=== PATIENT | female | born 1945 | race Caucasian/White ===

== ENCOUNTER 2021-01-29 08:00 | Outpatient (CLI) | payer BC | END 2021-01-29 08:01 | disposition home or self-care (01) | LOC: LAB 08:00 | PROVIDERS: ATTEND Family Medicine | DX: U07.1 COVID-19 (principal) ==

== ENCOUNTER 2021-01-29 19:15 | Outpatient (CLI) | payer BC ==
--- NOTE | 2021-01-29 22:16 | XRAY Report ---
PROCEDURE: Chest 2 View X-Ray INDICATIONS: COUGH TECHNIQUE: 2 view(s) of the chest. COMPARISON: None. FINDINGS: Surgical changes and devices: None. Lungs and pleura: No pleural effusions or pneumothorax. Lungs are clear. Mediastinum: Mediastinal contours are normal. Heart size is normal. Bones and chest wall: No suspicious bony abnormalities. Soft tissues appear unremarkable. IMPRESSION: No acute cardiopulmonary abnormality Reviewed by: Vicente Tarango on 01/29/2021 10:14 PM PDT Approved by: Vicente Tarango on 01/29/2021 10:14 PM PDT Station ID: [id number]
== END 2021-01-29 23:59 ==
LOC: DI.N 19:15
PROVIDERS: ATTEND Family Medicine
DX: R05.9 Cough, unspecified (principal); U07.1 COVID-19

== ENCOUNTER 2021-11-05 09:00 | Outpatient (CLI) | payer BC ==
[2021-11-05 09:15] LABS: BASOPHILS # (AUTO) 0.1 10^3/uL (0.0-0.1); BASOPHILS % (AUTO) 1.1 %; EOSINOPHILS # (AUTO) 0.2 10^3/uL (0.0-0.7); EOSINOPHILS % (AUTO) 3.6 %; HCT - HEMATOCRIT 43.2 % (37.0-47.0); HGB - HEMOGLOBIN 14.5 g/dL (12.0-16.0); LYMPHOCYTES # (AUTO) 3.2 10^3/uL (1.5-3.5); LYMPHOCYTES % (AUTO) 47.8 %; MEAN CORPUSCULAR HEMOGLOBIN 30.8 pg (27.0-31.0); MEAN CORPUSCULAR HGB CONC 33.6 g/dL (32.0-36.0); MEAN CORPUSCULAR VOLUME 91.7 fL (81.0-99.0); MEAN PLATELET VOLUME 10.1 fL (7.9-10.8); MONOCYTES # (AUTO) 0.7 10^3/uL (0.0-1.0); MONOCYTES % (AUTO) 10.5 %; NEUTROPHILS # (AUTO) 2.4 10^3/uL (1.5-6.6); NEUTROPHILS % (AUTO) 36.5 %; PLT - PLATELET COUNT 193 10^3/uL (130-450); RED BLOOD COUNT 4.71 10^6/uL (4.20-5.40); WHITE BLOOD COUNT 6.6 x10^3/uL (4.8-10.8)
[2021-11-05 09:41] LABS: ALBUMIN 4.3 g/dL (3.2-5.5); ALBUMIN/GLOBULIN RATIO 1.7 (1.0-2.2); ALKALINE PHOSPHATASE 40 IU/L (42-121); ALT ALANINE AMINOTRANSFERASE 21 IU/L (10-60); AST ASPARTATE AMINOTRANSFERASE 24 IU/L (10-42); BILIRUBIN,TOTAL 1.2 mg/dL (0.2-1.0); BUN - BLOOD UREA NITROGEN 19 mg/dL (6-20); CALCIUM 9.5 mg/dL (8.5-10.3); CARBON DIOXIDE - CO2 33 mmol/L (21-32); CHLORIDE 97 mmol/L (101-111); CHOL/HDL RATIO 2.9 (<4.4); CHOLESTEROL 150 mg/dL; CK- CREATINE KINASE 78 IU/L (22-269); CREATININE 0.7 mg/dL (0.4-1.0); GFR - MDRD 81 (>89); GLUCOSE 108 mg/dL (70-100); HDL CHOLESTEROL 52 mg/dL; LDL CHOLESTEROL,CALCULATED 72 mg/dL; LDL/HDL RATIO 1.4 (<4.4); POTASSIUM 3.7 mmol/L (3.5-5.0); SODIUM 141 mmol/L (135-145); TOTAL PROTEIN 6.8 g/dL (6.7-8.2); TRIGLYCERIDES 130 mg/dL; VLDL CHOLESTEROL 26 mg/dL
[2021-11-05 09:49] LABS: THYROID STIMULATING HORMONE 0.53 uIU/mL (0.34-5.60)
[2021-11-08 20:20] LABS: ESTIMATED AVERAGE GLUCOSE 123 mg/dL (70-100); HEMOGLOBIN A1c% 5.9 % (4.27-6.07)
== END 2021-11-05 09:01 | disposition home or self-care (01) ==
LOC: LAB 09:00
PROVIDERS: ATTEND Internal Medicine
DX: I10 Essential (primary) hypertension (principal); K29.70 Gastritis, unspecified, without bleeding; K21.9 Gastro-esophageal reflux disease without esophagitis; E78.5 Hyperlipidemia, unspecified; E03.9 Hypothyroidism, unspecified; R41.3 Other amnesia; J45.909 Unspecified asthma, uncomplicated; Z79.899 Other long term (current) drug therapy; R73.01 Impaired fasting glucose
CPT/HCPCS: 36415; 80053; 80061; 82550; 82607; 83036; 83721; 84443; 85025

== ENCOUNTER 2022-04-13 09:01 | Outpatient (CLI) | payer BC ==
[2022-04-13 09:20] LABS: BASOPHILS # (AUTO) 0.1 10^3/uL (0.0-0.1); BASOPHILS % (AUTO) 1.2 %; EOSINOPHILS # (AUTO) 0.3 10^3/uL (0.0-0.7); EOSINOPHILS % (AUTO) 4.1 %; HGB - HEMOGLOBIN 14.4 g/dL (12.0-16.0); LYMPHOCYTES # (AUTO) 3.2 10^3/uL (1.5-3.5); LYMPHOCYTES % (AUTO) 45.9 %; MEAN CORPUSCULAR HEMOGLOBIN 30.8 pg (27.0-31.0); MEAN CORPUSCULAR HGB CONC 32.7 g/dL (32.0-36.0); MEAN CORPUSCULAR VOLUME 94.2 fL (81.0-99.0); MEAN PLATELET VOLUME 9.7 fL (7.9-10.8); MONOCYTES # (AUTO) 0.6 10^3/uL (0.0-1.0); MONOCYTES % (AUTO) 9.2 %; NEUTROPHILS # (AUTO) 2.7 10^3/uL (1.5-6.6); NEUTROPHILS % (AUTO) 39.2 %; PLT - PLATELET COUNT 198 10^3/uL (130-450); RED BLOOD COUNT 4.67 10^6/uL (4.20-5.40); RED CELL DISTRIBUTION WIDTH 14.1 % (12.0-15.0); WHITE BLOOD COUNT 6.9 x10^3/uL (4.8-10.8)
[2022-04-13 09:44] LABS: ALBUMIN 4.3 g/dL (3.2-5.5); ALBUMIN/GLOBULIN RATIO 1.5 (1.0-2.2); ALKALINE PHOSPHATASE 51 IU/L (42-121); ALT ALANINE AMINOTRANSFERASE 20 IU/L (10-60); AST ASPARTATE AMINOTRANSFERASE 23 IU/L (10-42); BILIRUBIN,TOTAL 0.9 mg/dL (0.2-1.0); BUN - BLOOD UREA NITROGEN 15 mg/dL (6-20); CALCIUM 8.8 mg/dL (8.5-10.3); CARBON DIOXIDE - CO2 28 mmol/L (21-32); CHLORIDE 96 mmol/L (101-111); CHOL/HDL RATIO 3.5 (<4.4); CHOLESTEROL 177 mg/dL; CK- CREATINE KINASE 67 IU/L (22-269); CREATININE 0.8 mg/dL (0.4-1.0); GFR - MDRD 70 (>89); GLUCOSE 113 mg/dL (70-100); HDL CHOLESTEROL 51 mg/dL; LDL CHOLESTEROL,CALCULATED 109 mg/dL; LDL/HDL RATIO 2.1 (<4.4); POTASSIUM 3.8 mmol/L (3.5-5.0); SODIUM 134 mmol/L (135-145); TOTAL PROTEIN 7.1 g/dL (6.7-8.2); TRIGLYCERIDES 84 mg/dL; VLDL CHOLESTEROL 17 mg/dL
[2022-04-13 09:52] LABS: THYROID STIMULATING HORMONE 1.71 uIU/mL (0.34-5.60)
[2022-04-13 09:54] LABS: FREE T4 (FREE THYROXINE) 0.83 ng/dL (0.58-1.64)
== END 2022-04-13 09:02 | disposition home or self-care (01) ==
LOC: LAB 09:01
PROVIDERS: ATTEND Internal Medicine
DX: Z00.00 Encounter for general adult medical examination without abnormal findings (principal); U07.1 COVID-19; K11.7 Disturbances of salivary secretion; R13.10 Dysphagia, unspecified; E78.5 Hyperlipidemia, unspecified; I10 Essential (primary) hypertension; E03.9 Hypothyroidism, unspecified; R73.01 Impaired fasting glucose; M25.569 Pain in unspecified knee; M54.50 Low back pain, unspecified; G47.33 Obstructive sleep apnea (adult) (pediatric); R09.82 Postnasal drip; J45.909 Unspecified asthma, uncomplicated; Z79.899 Other long term (current) drug therapy; M65.30 Trigger finger, unspecified finger
CPT/HCPCS: 36415; 80053; 80061; 82550; 83721; 84439; 84443; 85025

== ENCOUNTER 2022-04-21 09:37 | Outpatient (CLI) | payer BC ==
--- NOTE | 2022-04-21 16:47 | XRAY Report ---
PROCEDURE: Knee 3 View LT INDICATIONS: KNEE PAIN TECHNIQUE: 3 views of the left knee(s) were acquired. COMPARISON: None. FINDINGS: Bones: No fractures or dislocations. No suspicious bony lesions. Mild tricompartmental periareolar articular osteophyte formation. Soft tissues: No joint effusion. No suspicious soft tissue calcifications. IMPRESSION: Osteoarthritis. No acute fracture. No osseous lesion. If symptoms and/or clinical suspic ion for pathology continue, further assessment with repeat plain films, or advanced imaging (e.g., CT , MRI, or bone scan) is recommended for further assessment. Reviewed by: Poly Major MD on 04/21/2022 4:46 PM PST Approved by: Poly Major MD on 04/21/2022 4:46 PM PST Station ID: [id number]
== END 2022-04-21 09:38 | disposition home or self-care (01) ==
LOC: DI 09:37
PROVIDERS: ATTEND Internal Medicine
DX: M17.12 Unilateral primary osteoarthritis, left knee (principal)

== ENCOUNTER 2022-11-08 07:45 | Outpatient (CLI) | payer BC ==
[2022-11-08 12:49] LABS: BILIRUBIN,URINE NEGATIVE (NEGATIVE); GLUCOSE, URINE (UA) NEGATIVE (NEGATIVE); KETONES,URINE (UA) NEGATIVE (NEGATIVE); LEUKOCYTE ESTERASE, URINE MODERATE (NEGATIVE); NITRITE,URINE POSITIVE (NEGATIVE); OCCULT BLOOD,URINE LARGE (NEGATIVE); PH,URINE 6.5 PH (5.0-7.5); PROTEIN,URINE 100 mg/dL (NEGATIVE); UROBILINOGEN,URINE 0.2 (NORMAL) E.U./dL (NORMAL)
[2022-11-08 12:50] LABS: CLARITY,URINE HAZY (CLEAR)
[2022-11-08 12:58] LABS: BACTERIA,URINE Moderate /HPF (None Seen); SQUAMOUS EPITHELIAL CELL,UR FEW Squamous (<= Few); WBC,URINE >25 /HPF (0-5)
== END 2022-11-08 08:00 | disposition home or self-care (01) ==
LOC: LAB.N 07:45
PROVIDERS: ATTEND Emergency Medicine
DX: R30.0 Dysuria (principal)
CPT/HCPCS: 81001; 87086; 87181

== ENCOUNTER 2023-02-08 08:09 | Outpatient (CLI) | payer BC ==
--- NOTE | 2023-02-08 11:06 | Mammography Report ---
BILATERAL DIGITAL DIAGNOSTIC MAMMOGRAM 3D/2D: 02/08/2023 CLINICAL: Palpable left breast lump. Due for bilateral imaging. Comparison is made to exams dated: 11/17/2021 mammogram - [facility] and 07/10/2014 m ammogram - [facility] [address] [facility]. Both breasts are almost entirely fatty (category a/<25% glandular tissue). There is a new focal area of skin thickening on the left breast at 4 o'clock that correlates with pal pable abnormality. No visible underlying abnormality in breast tissue. No significant masses, calcifications, or other findings are seen in either breast. Mammograms are o therwise stable. IMPRESSION: INCOMPLETE: NEEDS ADDITIONAL IMAGING EVALUATION Focal skin thickening corresponding to palpable abnormality is seen. Ultrasound is recommended for fu ll evaluation of this area. This was performed immediately following this exam. Annual mammograms are otherwise stable. Based on the Tyrer Cuzick model (a risk assessment model) the patients lifetime risk is 1.9% and her 10 year risk is 0.0%. According to the ACR, ACS, and NCCN guidelines, an annual breast MRI exam kaykay g with mammogram is recommended if the patients lifetime risk is 20% or greater. This exam was interpreted at Station ID: [id number]. NOTE: For mammograms, a report in lay terms will be sent to the patient. Approximately 15% of breast malignancies will not be visualized mammographically. In the management of a palpable breast mass, a negative mammogram must not discourage biopsy of a clinically suspicious lesion. Electronically Signed By: Christine conway/:02/08/2023 09:13:20 ACR BI-RADS Category 0: Incomplete 3340F PARENCHYMAL PATTERN: (F) - The breast(s) demonstrate(s) diffuse fatty replacement. BI-RADS CATEGORY: (0) - 0 Ultrasound [id number] Immediate follow-up LATERALITY: (B)
--- NOTE | 2023-02-08 11:06 | Ultrasound Report ---
LIMITED ULTRASOUND OF LEFT BREAST: 02/08/2023 CLINICAL: Palpable left breast lump. Comparison is made to exams dated: 11/17/2021 mammogram - [facility], 07/10/2014 mamm ogram, and 05/17/2010 mammogram - [facility]. Color flow ultrasound of the left breast 3 o'clock region was performed. Larkin scale images of the r eal-time examination were reviewed. There is a benign, smooth, avascular skin thickening on the left breast at 3 o'clock that correlates with mammography and palpable abnormality. No increased vascular flow with color Doppler imaging. IMPRESSION: BENIGN Benign skin thickening corresponds to the mammographic and palpable finding. There is no sonographic evidence of malignancy. Return to annual mammogram screening schedule is recommended. Findings and recommendations were conveyed to the patient at time of exam. This exam was interpreted at Station ID: [id number]. Electronically Signed By: Christine conway/:02/08/2023 10:32:29 letter sent: No_Letter Ultrasound BI-RADS: 2 Benign BI-RADS CATEGORY: (2) - 2 Mammogram [id number] return to screening LATERALITY: (B)
== END 2023-02-08 08:10 | disposition home or self-care (01) ==
LOC: DI 08:09
PROVIDERS: ATTEND Internal Medicine
DX: N63.21 Unspecified lump in the left breast, upper outer quadrant (principal)

== ENCOUNTER 2023-05-04 08:11 | Outpatient (CLI) | payer BC ==
--- NOTE | 2023-05-04 10:23 | XRAY Report ---
PROCEDURE: Lumbar Spine 2-3V INDICATIONS: LOW BACK PAIN TECHNIQUE: 2 views of the lumbar spine were acquired. COMPARISON: None. FINDINGS: Bones: 5 [id number] vertebrae are present. Scoliosis is noted. No definite vertebral body compr ession fractures. Grade 1 anterolisthesis of L4 over L5. Severe DJD of the facet joints. Soft tissues: Overlying bowel gas pattern is normal. Severe atherosclerotic vascular calcifications and phleboliths are noted. IMPRESSION: 1. S-shaped scoliosis of the lumbar spine with degenerative changes of the facet joints 2. Spondylolisthesis Reviewed by: Chace Ascencio MD on 05/04/2023 10:22 AM PST Approved by: Chace Ascenico MD on 05/04/2023 10:22 AM PST Station ID: [id number]
== END 2023-05-04 08:12 | disposition home or self-care (01) ==
LOC: DI 08:11
PROVIDERS: ATTEND Internal Medicine
DX: M43.16 Spondylolisthesis, lumbar region (principal)

== ENCOUNTER 2023-06-21 08:08 | Outpatient (CLI) | payer MEDICARE, BC ==
--- NOTE | 2023-06-21 15:29 | DEXA Report ---
PROCEDURE: Dexa Spine and/or Hip INDICATIONS: POST MENOPAUSAL TECHNIQUE: Dual energy x-ray absorptiometry (DXA) was performed on a SYLOB System. Regions measur ed are the AP Spine, femoral neck, and if needed forearm. COMPARISON: None FINDINGS: Lumbar Spine: Bone Mineral Density: 1.26 g/cm/cm,T score: 0.7. Left Femoral Neck: Bone Mineral Density: 0.760 g/cm/cm, T score: -2. Left Hip: Bone Mineral Density: 0.904 g/cm/cm,T score: -0.8. (T score greater or equal to -1.0: NORMAL) (T score from -1.1 to -2.4: OSTEOPENIA) (T score less than or equal to -2.5 to: OSTEOPOROSIS) Impression: By WHO criteria, this patient has moderate osteopenia in the femoral neck. Patients with diagnosis of osteoporosis or osteopenia should have regular bone mineral density assess ment. For those eligible for Medicare, routine testing is allowed once every 2 years. Testing frequ ency can be increased for patients who have rapidly progressing disease or for those who are receivin g medical therapy to restore bone mass. Reviewed by: Alba Flores MD on 06/21/2023 3:27 PM PDT Approved by: Alba Flores MD on 06/21/2023 3:27 PM PDT Station ID: [id number]
== END 2023-06-21 08:09 | disposition home or self-care (01) ==
LOC: DI 08:08
PROVIDERS: ATTEND Internal Medicine
DX: M85.88 Other specified disorders of bone density and structure, other site (principal)

== ENCOUNTER 2023-08-15 08:38 | Day surgery (SDC) | payer BC ==
[2023-08-15] MEDS ORDERED: ceFAZolin 2 GM VIAL ONE (09:05)
[2023-08-15] MEDS ORDERED: LIDOCAINE-PF 2% 10 ML AMP SUBQ ONE (09:06)
[2023-08-15] MEDS ORDERED: PROPOFOL 500 MG/50 ML 500 MG/50 ML VIAL ONE (09:06)
[2023-08-15] MEDS ORDERED: fentaNYL 100 MCG/2 ML VIAL ONE (09:07)
[2023-08-15] MEDS ORDERED: MIDAZOLAM 2 MG/2 ML VIAL ONE (09:07)
[2023-08-15] MEDS ORDERED: BUPIVACAINE 0.5%-EPI 1:200000 PF 30 ML VIAL ONE (09:16)
[2023-08-15] MEDS: LACTATED RINGERS 1,000 ML IV ONE ×2 (09:16→10:41)
--- NOTE | 2023-08-15 09:23 | ANESTHESIA ---
Pre-Anesthesia VS, & Labs - Diagnosis LEFT BREAST MASS - Procedure LEFT BREAST EXCISIONAL BIOBPSY Vital Signs: Temp Pulse Resp BP Pulse Ox O2 Flow Rate 36.2 C L 62 18 154/82 H 94 08/15/23 08:56 08/15/23 08:56 08/15/23 08:56 08/15/23 08:56 08/15/23 08:56 Height: 5 ft 1 in Weight (kg): 89.3 kg Body Mass Index: 37.2 BMI Classification: Obese - NPO Last Fluid Intake: SIP 0700 Last Food Intake: >8HR - Is Patient ?: No Home Medications and Allergies Home Medications: Ambulatory Orders Amlodipine Besylate [Norvasc] 20 mg PO DAILY 08/10/23 Atorvastatin [Lipitor] 10 mg PO DAILY 08/10/23 Cetirizine [ZyrTEC] 10 mg PO DAILY 08/10/23 Escitalopram Oxalate [Lexapro] 20 mg PO DAILY 08/10/23 Losartan Potassium [Cozaar] 100 mg PO DAILY 08/10/23 Metoprolol Tartrate [Lopressor] 25 mg PO DAILY 08/10/23 Omeprazole Magnesium [Prilosec] 20 mg PO DAILY 08/10/23 Amlodipine Besylate [Norvasc] 20 mg PO DAILY 08/10/23 Atorvastatin [Lipitor] 10 mg PO DAILY 08/10/23 Cetirizine [ZyrTEC] 10 mg PO DAILY 08/10/23 Escitalopram Oxalate [Lexapro] 20 mg PO DAILY 08/10/23 Losartan Potassium [Cozaar] 100 mg PO DAILY 08/10/23 Metoprolol Tartrate [Lopressor] 25 mg PO DAILY 08/10/23 Omeprazole Magnesium [Prilosec] 20 mg PO DAILY 08/10/23 Allergies/Adverse Reactions: Allergies Allergy/AdvReac Type Severity Reaction Status Date / Time Sulfa (Sulfonamide Allergy Unknown Unknown Verified 08/15/23 09:04 Antibiotics) Anes History & Medical History - Anesthetic History Anesthesia Complications: reports: No previous complications Family history of Anesthesia Complications: Denies - Medical History Cardiovascular: reports: Hypertension, High cholesterol, Murmur Pulmonary: reports: Sleep apnea, CPAP use Gastrointestinal: reports: GERD Urinary: reports: None Musculoskeletal: reports: Osteoarthritis Endocrine/Autoimmune: reports: HyPOthyroidism Skin: reports: None Smoking Status: Former smoker Psychosocial: reports: No issues indicated - Surgical History General: reports: Appendectomy Eyes Ears Nose Throat (EENT): reports: Tonsil/Adenoidectomy Urologic: reports: Bladder surgery Gynecologic: reports: Hysterectomy, Oophrectomy Orthopedic: reports: Shoulder arthroplasty, Carpal Tunnel surgery Results - EKG Results EKG Comparison: Reviewed EKG Exam General: Alert Dental: WNL Mouth Openin Fingerbreadth Neck Mobility: Normal Mallampati classification: III Thyromental Distance: less than 4 cm Respiratory: Lungs clear Cardiovascular: Regular rate Plan Anesthesia Type: General, MAC, Total IV Regional Block: Per Surgeon's request for Post Op pain control Consent for Procedure(s) Verified and Reviewed: Yes Code Status: Attempt Resuscitation ASA classification: 2-Mild systemic disease Is this case an emergency?: No
[2023-08-15] MEDS ORDERED: ONDANSETRON 4 MG/2 ML VIAL IVP PRN (09:34)
[2023-08-15] MEDS ORDERED: fentaNYL 100 MCG/2 ML VIAL IVP PRN (09:34)
[2023-08-15] MEDS ORDERED: HYDROmorphone 0.5 MG/0.5 ML SYRINGE IVP PRN (09:34)
[2023-08-15] MEDS ORDERED: ePHEDrine 50 MG/ML VIAL IVP PRN (09:34)
[2023-08-15] MEDS ORDERED: ATROPINE ABBOJECT 1 MG/10 ML SYRINGE IVP PRN (09:34)
[2023-08-15] MEDS ORDERED: NALOXONE 0.4 MG/ML VIAL IVP PRN (09:34)
[2023-08-15] MEDS ORDERED: MORPHINE 2 MG/ML CARPUJECT IVP PRN (09:34)
[2023-08-15] MEDS ORDERED: METOCLOPRAMIDE 10 MG/2 ML VIAL IVP PRN (09:34)
[2023-08-15] MEDS ORDERED: ePHEDrine 50 MG/ML VIAL IVP ONE (09:56)
[2023-08-15] MEDS ORDERED: LACTATED RINGERS 1,000 ML IV SCH (10:00)
[2023-08-15] MEDS: BUPIVACAINE 0.5%-EPI 1:200000 PF 30 ML VIAL SUBQ ONE (10:10)
[2023-08-15] MEDS ORDERED: HYDROcod/ACETAM 5/325 MG TABLET PO PRN (10:42)
--- NOTE | 2023-08-15 10:55 | OPERATIVE REPORT ---
Operative Report - General Procedure Date: 08/15/23 Planned Procedure: LEFT incisional (as extent cannot be determined preoperatively) breast biopsy Pre-Op Diagnosis: Persistent and symptomatic LEFT lateral skin thickness Procedure Performed: LEFT incisional LEFT breast biopsy (lesion marked with short stitch superiorly and long stitch laterally) Post Op Diagnosis: Same - Procedure Note Primary Surgeon: Cesar Wang MD Anesthesia Provider: Khai Chiu CRNA Anesthesia Technique: Local (30 mL 1/2% marcaine with epinephrine), MAC IV Fluids (mL): 600 Estimated Blood Loss (mL): 5 Drain/Tube Type: Other (None.) Indications: Symptomatic and persistent LEFT breast skin thickening-mass Findings: Very thickened leather like skin Complications: None. - Other Other Information/Narrative: After verbal and written informed consent was obtained detailing the operation, the alternatives the operation including no operation, risks of infection, bleeding requiring transfusion with its risks, nerve injury, and and after I met with the patient confirming the surgery and the site of surgery (signed), the patient was brought to the operative suite and placed supine on the operating table. Great care was taken to avoid pressure points to prevent pressure necrosis or nerve injury. Monitoring devices were applied along with TEDs and pneumatic compression stockings (to prevent DVT). The patient received preoperative antibiotics for surgical prophylaxis. Khai Chiu CRNA sedated and anesthetized the patient for the entire procedure. The patient was prepped and draped in the usual sterile manner. With the patient draped my initials were clearly visible. A "time in" then confirmed that the patient was identified with 3 identifiers (name, date, and medical record number), the history and physical was updated and in the chart, the signed consent confirming the procedure was in the chart, the patient was in the correct position, the aforementioned prophylactic measures were in place or given, we had the correct personnel and equipment to complete the procedure and that anesthesia and the surgical team were given an opportunity to express any concerns. With the agreement of everyone in the room we proceeded with the operation. After injecting the skin and subcutaneous tissues with half percent Marcaine with epinephrine, an elliptical incision was made encompassing the greatest amount of abnormal skin. Removing all of the abnormal skin would have involved taking out the majority of the left lateral portion of the breast. Dissection down into the subcutaneous tissues was completed using Bovie electrocautery. A "V" excision of the subcutaneous tissues was done to allow for a more cosmetic type closure. Meticulous hemostasis was achieved using Bovie electrocautery. Interestingly, the tissues were quite edematous. There was no overlying erythema. The skin itself appeared quite white, almost blanched. A small bleeder was controlled using a 3-0 Vicryl [id number] suture. The excised skin subcutaneous tissues was then marked with a short silk stitch superiorly, and a long silk stitch laterally. The specimen was sent off the operative field and permission was given to send it to pathology. The cavity was examined and meticulous hemostasis was again noted. The subcutaneous tissues were approximated using interrupted 3-0 Vicryl sutures. The skin incision was approximated with 4-0 Monocryl in a subcuticular fashion. The cavity and overlying skin was then injected using the remaining half percent Marcaine with epinephrine. The skin was cleaned of its prep and Dermabond was applied. At this point a timeout was performed that confirmed that all counts were correct x2, the procedure that was performed, the blood loss, the IV fluids administered, the patient's condition, and any concerns of the operating team had. Having tolerated the procedure well, the patient was taken recovery room in good and stable condition. The plan is for outpatient discharge when the patient is adequately recovered. CPT 49829 This document was created in part using voice recognition technology. Because of the inherent limitations of the system, occasional same sounding word substitutions and grammatical errors do occur and persist despite proofreading. Please read this document for content.
[2023-08-15 11:27] VITALS: BP 132/72; O2SAT 97
--- NOTE | 2023-08-15 18:08 | ANESTHESIA POST OP EVALUATION ---
Anesthesia Post Eval - Post Anesthesia Eval Vitals: Last Vital Signs Temp 36.7 C 08/15/23 11:05 Pulse 72 08/15/23 11:20 Resp 16 08/15/23 11:20 BP 132/72 H 08/15/23 11:20 Pulse Ox 97 08/15/23 11:20 O2 Flow Rate CV Function Including HR & BP: Stable Pain Control: Satisfactory Nausea & Vomiting: Negative Mental Status: Baseline Respiratory Status: Airway Patent Hydration Status: Satisfactory Anesthesia Complications: None
== END 2023-08-15 08:39 | disposition home or self-care (01) ==
LOC: SDS 08:38
PROVIDERS: ATTEND Surgery
PROC: 0HB5XZX Excision of Chest Skin, External Approach, Diagnostic (ICD-10-PCS; principal; 2023-08-15 10:45)
DX: N60.32 Fibrosclerosis of left breast (principal); E66.9 Obesity, unspecified; Z68.37 Body mass index [BMI] 37.0-37.9, adult; I10 Essential (primary) hypertension; G47.30 Sleep apnea, unspecified; Z87.891 Personal history of nicotine dependence
CPT/HCPCS: 19101; J7120

== ENCOUNTER 2023-09-12 09:56 | Outpatient (CLI) | payer BC ==
--- NOTE | 2023-09-12 15:41 | MRI Report ---
PROCEDURE: Lumbar Spine WO INDICATIONS: SPINAL STENOSIS TECHNIQUE: Noncontrast sagittal T1 spin echo and T2 fast echo, sagittal STIR, axial T1 and T2 fast spin echo thr ough the lumbar spine. In cases with scoliosis, additional coronal T2 fast spin echo may be performe d. COMPARISON: Plain films dated 05/04/2023 FINDINGS: Image quality: Excellent. Alignment and Curvature: 5 lumbar type vertebral bodies are present by plain film. There is moderate leftward curvature of the upper lumbar spine. Loss of normal lumbar lordosis. 3 mm of retrolisthesis of L1 on L2 and L2 on L3. 6 mm of anterolisthesis of L4 on L5. Bone Marrow: Marrow is of normal overall signal. No acute vertebral body compression fractures. Mi ld reactive signal throughout the endplates of the lumbar lower thoracic spine, most prominently at L 1-L2 and L2-L3. Spinal Cord: Conus medullaris terminates at the upper L2 level. Visualized cord demonstrates normal signal and size. Paraspinous Soft Tissues: No paravertebral masses. Bilateral simple appearing renal cysts are prese nt. T12-L1: Mild disc height loss. Moderate disc desiccation. Mild diffuse disc bulge. Mild canal stenos is. No foraminal stenosis L1-L2: Moderate disc desiccation. Mild disc height loss and diffuse disc bulge. Mild facet and lig ament flavum hypertrophy. Mild epidural lipomatosis. Mild canal stenosis. Mild bilateral foraminal st enosis L2-L3: Moderate disc desiccation. Mild disc height loss and diffuse disc bulge. Mild facet and lig ament flavum hypertrophy. Mild canal stenosis. Moderate bilateral foraminal stenosis L3-L4: Moderate disc desiccation. Mild disc height loss and diffuse disc bulge. Mild facet hypertro phy. Mild epidural lipomatosis. Mild canal stenosis. Moderate bilateral foraminal stenosis. L4-L5: Moderate disc desiccation. Mild disc height loss. Moderate diffuse disc bulge. Moderate face t and ligament flavum hypertrophy. Mild epidural lipomatosis. Severe canal stenosis. Severe left and moderate to severe right foraminal stenosis. Left greater than right L4 nerve root compression L5-S1: Mild disc desiccation and diffuse disc bulge. Moderate bilateral facet hypertrophy. Mild can al stenosis. Moderate to severe left and moderate right subarticular foraminal stenosis. Mild left L5 nerve root compression. IMPRESSION: 1. Multilevel degenerative disc and facet disease, in addition to epidural lipomatosis and ligamentum flavum hypertrophy. 2. Multilevel canal stenoses, worst at L4-L5 where there is severe canal stenosis. 3. Multilevel foraminal stenoses, worst at L4-L5 and L5-S1 where there is associated foraminal nerve root compression. Recommend correlation with clinical symptoms to ascertain relevance of this finding . Reviewed by: Poly Major MD on 09/12/2023 3:40 PM PDT Approved by: Poly Major MD on 09/12/2023 3:40 PM PDT Station ID: [id number]
== END 2023-09-12 09:57 | disposition home or self-care (01) ==
LOC: DI 09:56
PROVIDERS: ATTEND Internal Medicine
DX: M47.816 Spondylosis without myelopathy or radiculopathy, lumbar region (principal); M51.36 Other intervertebral disc degeneration, lumbar region; M48.062 Spinal stenosis, lumbar region with neurogenic claudication; M47.817 Spondylosis without myelopathy or radiculopathy, lumbosacral region; M51.37 Other intervertebral disc degeneration, lumbosacral region; M48.07 Spinal stenosis, lumbosacral region

== ENCOUNTER 2023-11-14 15:35 | Outpatient (CLI) | payer BC ==
[2023-11-14 16:11] LABS: BASOPHILS # (AUTO) 0.1 10^3/uL (0.0-0.1); EOSINOPHILS # (AUTO) 0.2 10^3/uL (0.0-0.7); EOSINOPHILS % (AUTO) 2.9 %; HCT - HEMATOCRIT 43.3 % (37.0-47.0); LYMPHOCYTES # (AUTO) 3.6 10^3/uL (1.5-3.5); MEAN CORPUSCULAR HEMOGLOBIN 30.2 pg (27.0-31.0); MEAN CORPUSCULAR HGB CONC 32.3 g/dL (32.0-36.0); MEAN CORPUSCULAR VOLUME 93.5 fL (81.0-99.0); MEAN PLATELET VOLUME 10.3 fL (7.9-10.8); MONOCYTES # (AUTO) 0.7 10^3/uL (0.0-1.0); NEUTROPHILS # (AUTO) 2.7 10^3/uL (1.5-6.6); NEUTROPHILS % (AUTO) 36.8 %; PLT - PLATELET COUNT 197 10^3/uL (130-450); RED BLOOD COUNT 4.63 10^6/uL (4.20-5.40); RED CELL DISTRIBUTION WIDTH 13.4 % (12.0-15.0); WHITE BLOOD COUNT 7.3 x10^3/uL (4.8-10.8)
[2023-11-14 16:24] LABS: CALCIUM 9.7 mg/dL (8.5-10.3); CREATININE 0.8 mg/dL (0.6-1.3); POTASSIUM 3.4 mmol/L (3.5-4.5)
== END 2023-11-14 15:36 | disposition home or self-care (01) ==
LOC: LAB 15:35
PROVIDERS: ATTEND Orthopaedic Surgery Orthopaedic Surgery of the Spine
DX: Z01.812 Encounter for preprocedural laboratory examination (principal); Z01.818 Encounter for other preprocedural examination
CPT/HCPCS: 36415; 80048; 85025; 93005